=== PATIENT | male | born 1985 | race Caucasian/White ===

== ENCOUNTER 2018-07-14 08:45 | Emergency (ER) | payer OTHER ==
--- NOTE | 2018-07-14 08:50 | ER Report ---
History and Physical Time Seen By MD: 08:48 HPI/ROS CHIEF COMPLAINT: Cough since Wednesday, myalgias HISTORY OF PRESENT ILLNESS: Patient is a 32-year-old male here with complaints of cough since Wednesday which has been persistent, myalgias, shortness of breath. Patient reports that over the past 24 hours he developed a fever and took antipyretic. At time of evaluation, patient is afebrile, hemodynamically stable and in no acute distress. He does report a dry cough and intermittent fevers and chills. Patient is well baseline and denies taking medications. Patient does occasionally smoke. REVIEW OF SYSTEMS: Constitutional: + fever, + chills. Eyes: No discharge. ENT: No sore throat. Cardiovascular: No chest pain, no palpitations. Respiratory: + dry cough, + mild shortness of breath. Gastrointestinal: No abdominal pain, no vomiting. Genitourinary: No hematuria. Musculoskeletal: No back pain. Skin: No rashes. Neurological: No headache. Allergies: Coded Allergies: codeine (Verified Allergy, Severe, HALLUCINATIONS, 07/14/18) Home Meds Reported Medications Ibuprofen (IBUPROFEN) 600 Mg Tablet, 1 TAB PO QDAY, TAB 07/14/18 Constitutional Vital Sign - Last 24 Hours 07/14/18 07/14/18 07/14/18 07/14/18 08:51 08:56 09:00 09:15 Temp 98.2 Pulse 105 109 Resp 16 B/P (MAP) 119/79 (92) 119/79 120/78 (92) Pulse Ox 93 94 O2 Delivery Room Air 07/14/18 09:30 B/P (MAP) 119/65 (83) Physical Exam General Appearance: The patient is alert, has no immediate need for airway protection and no signs of toxicity. No acute distress Eyes: Pupils equal and round no pallor or injection. ENT, Mouth: Mucous membranes are moist. Respiratory: There are no retractions, lungs are clear to auscultation. Cardiovascular: Regular rate and rhythm. Gastrointestinal: Abdomen is soft and non tender, no masses, bowel sounds normal. Neurological: No focal neurological findings Skin: Warm and dry, no rashes. Musculoskeletal: Neck is supple non tender. Extremities are nontender, nonswollen and have full range of motion. DIFFERENTIAL DIAGNOSIS: After history and physical exam differential diagnosis was considered forshortness of breath including but not limited to pulmonary infectious process, COPD, asthma, pulmonary embolus, influenza Medical Decision Making Data Points Laboratory Hematology Test 07/14/18 08:53 Influenza Virus Type A (PCR) Positive (NEGATIVE) Influenza Virus Type B (PCR) Negative (NEGATIVE) Chemistry Test 07/14/18 08:53 Influenza Virus Type A (PCR) Positive (NEGATIVE) Influenza Virus Type B (PCR) Negative (NEGATIVE) EKG/Imaging Imaging No acute intrathoracic pathology. ED Course/Re-evaluation ED Course Patient is a 32-year-old male here with cough since Wednesday, myalgias, fevers and chills for the past 24 hours. Patient was concerned that he might have influenza so he came in for evaluation. He does have a persistent dry cough however lungs are clear on auscultation. Patient reports smoking occasionally however is otherwise healthy at baseline. Patient was positive for influenza A. Chest x-ray showed no acute findings. Return cautions provided. Patient is outside the window for Tamiflu treatment. Symptom management with conservative measures recommended. Close PCP follow-up recommended Decision to Disposition Date: Jul 14, 2018 Decision to Disposition Time: 09:52 Depart Departure Latest Vital Signs Vital Signs Date Time Temp Pulse Resp B/P (MAP) Pulse Ox O2 Delivery O2 Flow Rate FiO2 07/14/18 09:30 119/65 (83) 07/14/18 09:15 109 94 07/14/18 08:56 98.2 16 Room Air Impression: Primary Impression: Flu Condition: Improved Disposition: HOME OR SELF-CARE Patient Instructions: Influenza (DC) Additional Instructions: Please drink plenty of water. You may take ibuprofen or Tylenol as needed for fever control. Please return immediately if you develop worsening symptoms, difficulty breathing, inability to keep down food or fluids. Please follow-up with ear primary care physician in the next 3-5 days. RAMO ROONEY DO Jul 14, 2018 08:50
[2018-07-14] MEDS ORDERED: IBUP600T22 PO (09:01)
[2018-07-14 09:30] VITALS: BP 119/65
--- NOTE | 2018-07-14 09:51 | RADIOLOGY IMAGING REPORT ---
FACILITY: [facility] PATIENT NAME: Sixto Cifuentes : 1985 MR: [id number] V: [id number] EXAM DATE: ORDERING PHYSICIAN: RAMO ROONEY TECHNOLOGIST: Location: [facility] Patient: Sixto Cifuentes : 1985 Visit/Account:[id number] Date of Sevice: 07/14/2018 Exam type: CHEST PA LAT History: cough, fever for several days Comparison: None. Findings: The lungs are free of acute effusions, infiltrates or edema. There is no evidence of a pneumothorax or pneumomediastinum. The cardiac silhouette is normal in size. The trachea is midline. IMPRESSION: 1. No acute cardiothoracic process is seen Report Dictated By: Sophia Anthony MD at 07/14/2018 9:45 AM Report E-Signed By: Sophia Anthony MD at 07/14/2018 9:46 AM WSN:[email or web address]
== END 2018-07-14 10:03 | disposition home or self-care (01) ==
LOC: ER 09:08
DX: J09.X2 Influenza due to identified novel influenza A virus with other respiratory manifestations (principal)
CPT/HCPCS: 71046; 87502; 99283